=== PATIENT | female | born 1945 | race Caucasian/White ===

== ENCOUNTER → 2016-12-14 | Outpatient (CLI) | payer MEDICARE, OTHER ==
[~2016-12-14] MED LIST: ADVAIR 250-501 EAC1 INH; ADVAIR 250-501 EACH IH; ALBUTEROL0.83 MG/ML IH; AMOXICILLIN500 M1 PO; ASPIRINEC PO; AZULFIDINE PO; CHERATUSSIN AC118 ML PO; COMBIVENT U/D3 M2 INH; DELTASONE20 MG PO; DEXILANT30 MG PO; DEXILANT60 MG PO; DUONEB INH; EMBRIL; FOLIC ACID1 MG PO; FUROSEMIDE40 MG PO; HYDROCODON-ACE1 EAC5 PO; IPRATR-ALBUTEROL3 ML IH; LEVAQUIN750 M1 PO; LORTAB 101 TAB 10/5 PO; LORTAB 7.5-5001 TAB PO; LOSARTAN-HCTZ1 EACH PO; METHOTREXATE2.5 MG PO; OMEPRAZOLE20 M2 PO; OXYCODONE-APAP1 EACH PO; PREDNISONE PO; PREDNISONE5 M1 PO; PREDNISONE50 MG PO; PRILOSEC20 MG PO; PROAIR HFA8.5 GM; PROAIR HFA8.5 GM IH; PROAIR HFA8.5 GM INH; PROVENTIL INH0.5 ML HHN; SINGULAIR PO; VIT D PO; XELJANZ5 MG PO; XOPENEX45 MCG/15 INH; [UNRECOGNIZED DRUG - OTHER] PO
--- NOTE | ~2016-12-14 | US128 ---
[id number] [facility]. [facility] [address] [place], [place] [address] [id number] O MR#: [id number] Acc #: [id number] NAME: CHANELL WILSON : 1945 SEX: F STUDY DATE/TIME: 12/14/2016 13:28 UNIT: [facility] ROOM: STUDY DESCRIPTION: US Thyroid Attending Physician: Franklin Nunes M.D. Ordering Physician: Franklin Nunes M.D. MEDICAL IMAGING REPORT This report is preliminary unless electronic signature is present EXAM Thyroid ultrasound. DATE OF STUDY 12/14/2016 COMPARISON STUDIES None CLINICAL HISTORY Several month history of thyromegaly is identified from physical exam. FINDINGS The gland is relatively atrophic appearing. Vascularity is within normal limits. No nodule is seen on either side. IMPRESSION Somewhat atrophic. Otherwise unremarkable gland, no nodule on either side. Dictated by... Lex Garcia M.D. THIS IS AN ELECTRONICALLY VERIFIED REPORT Lex Garcia M.D. at 12/15/2016 4:01 PM DEVANTE/forrest TD: 12/14/2016 17:16 JOB #: [id number] MEDICAL IMAGING REPORT Page 1 of 1 COPY
--- NOTE | ~2016-12-14 | US116 ---
[facility] A Service of [facility] & [facility] RADIOLOGY TEXT RESULTS PATIENT: CHANELL WILSON LOCATION: [facility] : [birth year] UNIT #: [id number] AGE: [address]: Renny Nunes MD SEX: F ORDER DR: [id number] [facility] [address] [place], [place] [address] [id number] O MR#: [id number] Acc #: [id number] NAME: CHANELL WILSON : 1945 SEX: F STUDY DATE/TIME: 12/14/2016 13:39 UNIT: [facility] ROOM: STUDY DESCRIPTION: US Soft Tissue Head/Neck Attending Physician: Franklin Nunes M.D. Referring Physician: Franklin Nunes M.D. Ordering Physician: Franklin Nunes M.D. Primary Care Physician: Franklin Nunes M.D. MEDICAL IMAGING REPORT This report is preliminary unless electronic signature is present EXAM Soft tissue head and neck ultrasound. HISTORY Neck swelling and lymphadenopathy. FINDINGS The technologist has taken a few random images of portions of the neck, including some normal-sized lymph nodes. IMPRESSION No abnormality convincingly demonstrated, but if there is concern about head and neck soft tissue mass in an adult, recommend a contrast-enhanced soft tissue neck CT for further evaluation. Dictated by... Lex Garcia M.D. THIS IS AN ELECTRONICALLY VERIFIED REPORT Lex Garcia M.D. at 12/15/2016 4:01 PM TEV/silvia TD: 12/14/2016 17:35 JOB #: [id number] MEDICAL IMAGING REPORT Page 1 of 1 COPY
== END | disposition home or self-care (01) ==
LOC: CGUS 12:34
DX: R22.1 Localized swelling, mass and lump, neck (principal); R59.0 Localized enlarged lymph nodes; E03.4 Atrophy of thyroid (acquired)
CPT/HCPCS: 76536

== ENCOUNTER → 2017-01-09 | Outpatient (CLI) | payer MEDICARE, OTHER ==
--- NOTE | ~2017-01-09 | CR63 ---
[facility]. [facility] A Service of [facility] & [facility] RADIOLOGY TEXT RESULTS PATIENT: CHANELL WILSON LOCATION: [facility] : 49 UNIT #: [id number] AGE: [address]: Renny Nunes MD SEX: F ORDER DR: [id number] [place] [id number] O MR#: [id number] Acc #: [id number] NAME: CHANELL WILSON : 1945 SEX: F STUDY DATE/TIME: 01/09/2017 11:36 UNIT: [facility] ROOM: STUDY DESCRIPTION: CR Chest 2 View Attending Physician: Renny Nunes Referring Physician: Renny Nunes Ordering Physician: Franklin Nunes M.D. Primary Care Physician: Renny Nunes MEDICAL IMAGING REPORT This report is preliminary unless electronic signature is present. EXAM PA and lateral chest INDICATIONS Cough for 5 days COMPARISON 05/26/2016 FINDINGS Stable scarring in the right lung. No acute infiltrate. Heart size is normal. Degenerative change thoracic spine. IMPRESSION No active disease. Dictated by... Merrill Chi M.D. THIS IS AN ELECTRONICALLY VERIFIED REPORT Merrill Chi M.D. at 01/10/2017 10:02 AM ARS/to TD: 01/09/2017 17:11 JOB #: [id number] MEDICAL IMAGING REPORT Page 1 of 1
== END | disposition home or self-care (01) ==
LOC: SRAD 11:30
DX: R05 Cough (principal); Z79.899 Other long term (current) drug therapy
CPT/HCPCS: 71020

== ENCOUNTER → 2017-02-23 | Outpatient (CLI) | payer MEDICARE, OTHER ==
--- NOTE | ~2017-02-23 | CR58 ---
[facility] A Service of [facility] & [facility] RADIOLOGY TEXT RESULTS PATIENT: CHANELL WILSON LOCATION: [facility] : [birth year] UNIT #: [id number] AGE: [address]: Renny Nunes MD SEX: F ORDER DR: [id number] [facility] [address] [place], [place] [address] [id number] O MR#: [id number] Acc #: [id number] NAME: CHANELL WILSON : 1945 SEX: F STUDY DATE/TIME: 02/23/2017 12:42 UNIT: [facility] ROOM: STUDY DESCRIPTION: CR Cervical Spine 2 or 3 Views Attending Physician: Franklin Nunes M.D. Referring Physician: Franklin Nunes M.D. Ordering Physician: Franklin Nunes M.D. Primary Care Physician: Franklin Nunes M.D. MEDICAL IMAGING REPORT This report is preliminary unless electronic signature is present EXAM Cervical spine, 02/23 INDICATION Headache and dizziness and nausea that started 1 week ago after physical therapy. FINDINGS Four views of the cervical spine were obtained. There is multilevel facet arthropathy. No fracture or subluxation is seen. There is mild degenerative disc disease at C5-6. Prevertebral soft tissues are normal. Note is made of a mild yxu-ut-edleu thoracic compression deformity which appears old. There are apparent carotid arterial calcifications on the left side of the neck. These could be further evaluated with carotid duplex ultrasound if indicated. IMPRESSION 1. No fracture or malalignment. 2. Multilevel facet arthropathy with degenerative disc disease at C5-6. 3. Left-side carotid calcifications could indicate carotid stenosis. This could be further assessed with carotid duplex ultrasound if indicated. 4. Old mild zpu-hz-zdzoq thoracic compression fracture. Dictated by... Leoncio Layton Jr., M.D. THIS IS AN ELECTRONICALLY VERIFIED REPORT Leoncio Layton Jr., M.D. at 02/26/2017 7:20 AM BRENDA/forrest [facility] A Service of [facility] & [facility] RADIOLOGY TEXT RESULTS PATIENT: CHANELL WILSON LOCATION: [facility] : [birth year] UNIT #: [id number] AGE: [address]: Renny Nunes MD SEX: F ORDER DR: TD: 02/23/2017 17:00 JOB #: [id number] MEDICAL IMAGING REPORT Page 1 of 1 COPY
--- NOTE | ~2017-02-23 | CT71 ---
[facility] A Service of [facility] RADIOLOGY TEXT RESULTS PATIENT: CHANELL WILSON LOCATION: [facility] : [birth year] UNIT #: [id number] AGE: [address]: Renny Nunes MD SEX: F ORDER DR: [id number] [facility] [address] [place], [place] [address] [id number] O MR#: [id number] Acc #: [id number] NAME: CHANELL WILSON : 1945 SEX: F STUDY DATE/TIME: 02/23/2017 12:57 UNIT: [facility] ROOM: STUDY DESCRIPTION: CT Head Wo Contrast Attending Physician: Renny Nunes Referring Physician: Renny Nunes Ordering Physician: Franklin Nunes M.D. Primary Care Physician: Renny Nunes MEDICAL IMAGING REPORT This report is preliminary unless electronic signature is present EXAM CT of the head without contrast, 02/23/17 HISTORY Headache and neck pain since 02/17/17 TECHNIQUE Axial noncontrast images were obtained from the skull base to the vertex. This CT exam was performed with one or more of the following radiation dose reduction techniques: automatic exposure control, adjustment of mA and/or kV according to patient size, and iterative reconstruction. FINDINGS Ventricular size and configuration are normal. There is no evidence of acute infarct or hemorrhage. There are no extraaxial fluid collections. No mass lesion or mass effect is seen. There are no skull fractures. IMPRESSION Normal noncontrast head CT. Dictated by... Nima Aguilera M.D. THIS IS AN ELECTRONICALLY VERIFIED REPORT Nima Aguilera M.D. at 02/24/2017 6:06 AM FABIO/chito TD: 02/23/2017 22:49 JOB #: [id number] [facility] A Service of [facility] & [facility] RADIOLOGY TEXT RESULTS PATIENT: CHANELL WILSON LOCATION: [facility] : [birth year] UNIT #: [id number] AGE: [address]: Renny Nunes MD SEX: F ORDER DR: MEDICAL IMAGING REPORT Page 1 of 1 COPY
== END | disposition home or self-care (01) ==
LOC: CCAT 12:15
DX: R51 Headache (principal); M06.9 Rheumatoid arthritis, unspecified; M54.2 Cervicalgia; M50.322 Other cervical disc degeneration at C5-C6 level; M46.92 Unspecified inflammatory spondylopathy, cervical region; I65.22 Occlusion and stenosis of left carotid artery; Z87.81 Personal history of (healed) traumatic fracture
CPT/HCPCS: 70450; 72040

== ENCOUNTER → 2017-03-02 | Outpatient (CLI) | payer MEDICARE, OTHER ==
--- NOTE | ~2017-03-02 | US37 ---
[facility] A Service of [facility] RADIOLOGY TEXT RESULTS PATIENT: CHANELL WILSON LOCATION: [facility] : [birth year] UNIT #: [id number] AGE: [address]: Renny Nunes MD SEX: F ORDER DR: [id number] [facility] [address] [place], [place] [address] [id number] O MR#: [id number] Acc #: [id number] NAME: CHANELL WILSON : 1945 SEX: F STUDY DATE/TIME: 03/02/2017 13:40 UNIT: [facility] ROOM: STUDY DESCRIPTION: US Carotid W/Doppler Bilateral Attending Physician: Franklin Nunes M.D. Referring Physician: Franklin Nunes M.D. Ordering Physician: Franklin Nunes M.D. Primary Care Physician: Franklin Nunes M.D. MEDICAL IMAGING REPORT This report is preliminary unless electronic signature is present EXAM Carotid Doppler 03/02/2017 HISTORY Dizziness and headaches for 1 week. PROCEDURE Reyes-scale imaging, color-Doppler flow imaging and Doppler waveform analysis. FINDINGS There is reyes-scale evidence of atherosclerotic plaque throughout both carotid systems. There is antegrade flow in both common and internal and external carotid and vertebral arteries. Right internal carotid peak systolic velocity is 1.19 meters per second with a brisk systolic upstroke and minimal spectral broadening. Left internal carotid peak systolic velocity is 1.11 meters per second with a brisk systolic upstroke and minimal spectral broadening. IMPRESSION 1. Reyes-scale evidence of plaque in both carotid systems consistent with atherosclerosis but velocities and waveforms suggest less than 50% stenosis in both internal carotid arteries by NASCET criteria. 2. Antegrade flow seen in both external carotid and vertebral arteries as well. Dictated by... Lex Garcia M.D. THIS IS AN ELECTRONICALLY VERIFIED REPORT Lex Garcia M.D. at 03/03/2017 10:47 PM DEVANTE/jf [facility] A Service of [facility] & [facility] RADIOLOGY TEXT RESULTS PATIENT: CHANELL WILSON LOCATION: [facility] : [birth year] UNIT #: [id number] AGE: [address]: Renny Nunes MD SEX: F ORDER DR: TD: 03/02/2017 17:42 JOB #: [id number] MEDICAL IMAGING REPORT Page 1 of 1 COPY
== END | disposition home or self-care (01) ==
LOC: CNIV 13:00
DX: I65.22 Occlusion and stenosis of left carotid artery (principal); I65.23 Occlusion and stenosis of bilateral carotid arteries
CPT/HCPCS: 93880

== ENCOUNTER → 2017-05-01 | Outpatient (CLI) | payer MEDICARE, OTHER ==
[2017-05-01 11:14] LABS: CALCIUM SERUM 9.2 mg/dL (8.4-10.2); CREATININE SERUM 0.8 mg/dL (0.6-1.4); GLOM FILT RATE Estimated 74.8 mL/min (>60)
== END | disposition home or self-care (01) ==
LOC: CSSDAY 10:18
PROVIDERS: Internal Medicine Rheumatology
DX: M81.0 Age-related osteoporosis without current pathological fracture (principal)
CPT/HCPCS: 36415; 82310; 82565; 96365; J3489

== ENCOUNTER → 2017-06-01 | Outpatient (CLI) | payer MEDICARE, OTHER ==
--- NOTE | ~2017-06-01 | MY29 ---
[facility] A Service [facility] RADIOLOGY TEXT RESULTS PATIENT: CHANELL WILSON LOCATION: [facility] : 47 UNIT #: [id number] AGE: [address]: Renny Nunes MD SEX: F ORDER DR: [id number] [facility] [address] [place], [place] [address] [id number] O MR#: [id number] Acc #: [id number] NAME: CHANELL WILSON : 1945 SEX: F STUDY DATE/TIME: 06/01/2017 13:48 UNIT: [facility] ROOM: STUDY DESCRIPTION: MY REANNA SCREENING W/ CAD BILAT Attending Physician: Franklin Nunes M.D. Ordering Physician: Franklin Nunes M.D. Primary Care Physician: Franklin Nunes M.D. MEDICAL IMAGING REPORT This report is preliminary unless electronic signature is present EXAM Digital screening mammogram, 06/01/2017; [facility]. HISTORY 72-year-old woman, positive family history, mother postmenopausal. Two prior right breast biopsies. Annual screen. COMPARISON Mammograms 02/25/2013, 06/04/2014, 08/06/2015, 05/30/2016. FINDINGS Digital imaging of each breast was completed utilizing standard craniocaudal and mediolateral-oblique projections. Review and interpretation of digital mammograms include a second review in conjunction with FDA-approved CAD device. There is an overall increase in the parenchymal presentation bilaterally with a generalized fibronodular pattern in each breast. There are no breast masses and I see no asymmetry in the parenchymal presentation. There are no suspicious microcalcifications and I see no architectural disturbance. IMPRESSION Benign mammogram. One-year followup recommended. Patients over the age of 40 are entered into a reminder system with target due date for the next mammogram. A result letter will also be sent to the patient. BIRADS: 2 Benign Finding. Dictated by... Major Galvez M.D. [facility] A Service [facility] RADIOLOGY TEXT RESULTS PATIENT: CHANELL WILSON LOCATION: [facility] : 47 UNIT #: [id number] AGE: [address]: Renny Nunes MD SEX: F ORDER DR: THIS IS AN ELECTRONICALLY VERIFIED REPORT Major Galvez M.D. at 06/03/2017 12:02 PM Hardik TD: 06/01/2017 19:57 JOB #: [id number] MEDICAL IMAGING REPORT Page 1 of 1 COPY
== END | disposition home or self-care (01) ==
LOC: CWCC 13:30
DX: Z12.31 Encounter for screening mammogram for malignant neoplasm of breast (principal); Z80.3 Family history of malignant neoplasm of breast; Z98.890 Other specified postprocedural states
CPT/HCPCS: G0202

== ENCOUNTER → 2017-06-08 | Outpatient (CLI) | payer MEDICARE, OTHER ==
--- NOTE | ~2017-06-08 | CR126 ---
[facility] A Service of [facility] RADIOLOGY TEXT RESULTS PATIENT: CHANELL WILSON [id number] [birth year] UNIT #: [id number] AGE: [address]: CHARLIE BONNER MD SEX: F ORDER DR: [id number] [facility] [address] [place], [place] [address] [id number] O MR#: [id number] Acc #: [id number] NAME: CHANELL WILSON : 1945 SEX: F STUDY DATE/TIME: 06/08/2017 11:34 UNIT: [facility] ROOM: STUDY DESCRIPTION: CR Foot Complete Min 3 View Lt Attending Physician: Charlie Bonner M.D. Ordering Physician: Charlie Bonner M.D. MEDICAL IMAGING REPORT This report is preliminary unless electronic signature is present EXAMINATION Three views left foot. DATE 06/08/2017 HISTORY Left foot pain for 1 month. No known injury. History of rheumatoid arthritis, high-risk medications. Undergoing evaluation for inflammatory arthritis. COMPARISON None. FINDINGS No fracture. No dislocation. Mild degenerative narrowing in the first MTP joint with small bunion formation along the distal medial surface of the first metatarsal. There is prominent spurring at the dorsum of the midfoot. Prominent posterior calcaneal spurs are present, greatest at the plantar surface. No marginal erosions or periostitis changes. IMPRESSION Kqkj-sk-coebtqer osteoarthritic changes in the left foot as described. No acute findings. Dictated by... Lyndsey Ramos M.D. THIS IS AN ELECTRONICALLY VERIFIED REPORT Lyndsey Ramos M.D. at 06/11/2017 8:50 AM SONYA/aj TD: 06/09/2017 01:30 [facility] A Service of [facility] & [facility] RADIOLOGY TEXT RESULTS PATIENT: CHANELL WILSON [facility] [id number] : [birth year] UNIT #: [id number] AGE: [address]: CHARLIE BONNER MD SEX: F ORDER DR: JOB #: [id number] MEDICAL IMAGING REPORT Page 1 of 1 COPY
--- NOTE | ~2017-06-08 | CR282 ---
[facility] A Service of [facility] RADIOLOGY TEXT RESULTS PATIENT: CHANELL WILSON [facility] [id number] : [birth year] UNIT #: [id number] AGE: [address]: CHARLIE BONNER MD SEX: F ORDER DR: [id number] [facility] [address] [place], [place] [address] [id number] O MR#: [id number] Acc #: [id number] NAME: CHANELL WILSON : 1945 SEX: F STUDY DATE/TIME: 06/08/2017 11:27 UNIT: [facility] ROOM: STUDY DESCRIPTION: CR Wrist Min 3 View Rt Attending Physician: Charlie Bonner M.D. Ordering Physician: Charlie Bonner M.D. MEDICAL IMAGING REPORT This report is preliminary unless electronic signature is present EXAMINATION Three views, right wrist. DATE 06/08/2017 HISTORY Rheumatoid arthritis of multiple sites with negative rheumatoid factor. Long-term use of high-risk medication. Evaluate for inflammatory arthritis. COMPARISON Right hand radiographs, 06/08/2017. There are no more remote wrist radiographs for comparison at this institution. FINDINGS No fracture. No dislocation. Advanced radiocarpal, intercarpal and carpometacarpal joint space narrowing with articular sclerosis. Small subchondral cystic changes are demonstrated throughout multiple carpal bones. Marginal osteophyte formation is demonstrated throughout the wrist. Osteopenia. No fracture or dislocation. Questionable marginal erosive changes along the proximal and ulnar aspect of the fifth metacarpal, raising the possibility of erosive osteoarthritis. IMPRESSION 1. Questionable subtle erosion along the proximal and ulnar margin of the fifth metacarpal bone raising the possibility of erosive type osteoarthritis. 2. Advanced degenerative changes right wrist as described in keeping with patient's stated history of rheumatoid arthritis. 3. No acute fracture or dislocation. 4. Osteopenia. [facility] A Service of [facility] & [facility] RADIOLOGY TEXT RESULTS PATIENT: CHANELL WILSON [facility] [id number] : [birth year] UNIT #: [id number] AGE: [address]: CHARLIE BONNER MD SEX: F ORDER DR: Dictated by... Lyndsey Ramos M.D. THIS IS AN ELECTRONICALLY VERIFIED REPORT Lyndsey Ramos M.D. at 06/11/2017 8:50 AM SONYA/aj TD: 06/09/2017 01:07 JOB #: [id number] MEDICAL IMAGING REPORT Page 1 of 1 COPY
--- NOTE | ~2017-06-08 | CR127 ---
[facility] A Service of [facility] RADIOLOGY TEXT RESULTS PATIENT: CHANELL WILSON LOCATION: [facility] #: [id number] : 49 UNIT #: [id number] AGE: [address]: GARY BONNER MD SEX: F ORDER DR: [id number] [facility] [address] [place], [place] [address] [id number] O MR#: [id number] Acc #: [id number] NAME: CHANELL WILSON : 1945 SEX: F STUDY DATE/TIME: 06/08/2017 11:32 UNIT: [facility] ROOM: STUDY DESCRIPTION: CR Foot Complete Min 3 View Rt Attending Physician: Gary Bonner M.D. Ordering Physician: Gary Bonner M.D. MEDICAL IMAGING REPORT This report is preliminary unless electronic signature is present EXAMINATION Three views of the right foot. DATE 06/08/2017 HISTORY Bilateral foot pain for 1 month. History of rheumatoid arthritis. Starting new medications. FINDINGS No fracture or joint dislocation. Chronic-appearing calcification at the base of fifth metatarsal may represent sequelae of old nonunited fracture. Prominent plantar calcaneal spur is present. There is mild degenerative change of the first MTP joint with hallux valgus formation, mild bunion formation of the distal medial and metatarsal bone. There is mild spurring at the dorsum of the midfoot at the tarsal - navicular junction. IMPRESSION 1. Mild osteoarthritic type changes of the right foot as described with mild osteopenia. 2. 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 3. No acute findings. Dictated by... Lyndsey Ramos M.D. THIS IS AN ELECTRONICALLY VERIFIED REPORT Lyndsey Ramos M.D. at 06/11/2017 8:50 AM LLH/jt [facility] A Service of [facility] & [facility] RADIOLOGY TEXT RESULTS PATIENT: CHANELL WILSON LOCATION: [facility] #: [id number] : [birth year] UNIT #: [id number] AGE: [address]: GARY BONNER MD SEX: F ORDER DR: TD: 06/09/2017 01:20 JOB #: [id number] MEDICAL IMAGING REPORT Page 1 of 1 COPY
--- NOTE | ~2017-06-08 | CR281 ---
[facility] A Service of [facility] RADIOLOGY TEXT RESULTS PATIENT: CHANELL WILSON LOCATION: [facility] : 49 UNIT #: [id number] AGE: [address]: CHARLIE BONNER MD SEX: F ORDER DR: [id number] [facility] [address] [place], [place] [address] [id number] O MR#: [id number] Acc #: [id number] NAME: CHANELL WILSON : 1945 SEX: F STUDY DATE/TIME: 06/08/2017 11:21 UNIT: [facility] ROOM: STUDY DESCRIPTION: CR Wrist Min 3 View Lt Attending Physician: Charlie Bonner M.D. Ordering Physician: Charlie Bonner M.D. MEDICAL IMAGING REPORT This report is preliminary unless electronic signature is present EXAMINATION Three-views, left wrist. DATE 06/08/2017 HISTORY 72-year-old female with rheumatoid arthritis at multiple sites with negative rheumatoid factor. Long-term use of high-risk medication. Evaluate for inflammatory osteoarthritis. COMPARISON Left hand radiographs, 06/08/2017. Previous left wrist radiograph from 2009, cannot be retrieved from archives due to computer malfunction. FINDINGS Old orthopedic plate and screw fixation changes of the distal left radial metaphysis. Hardware appears intact. Marked narrowing of the radiocarpal joint space, marked narrowing of the intercarpal and carpal metacarpal joint spaces. Articular sclerosis is demonstrated within the wrist and radiocarpal joint, and there is marginal osteophyte formation which predominates along the radial margin. No periostitis changes. Mild subchondral cystic changes within multiple carpal bones. No fracture or dislocation. Osteopenia. IMPRESSION 1. Severe degenerative changes of the left wrist in keeping with a stated history of rheumatoid arthritis, without evidence of active erosive or inflammatory process at this time. 2. Old ORIF changes of the distal left radial metaphysis. 3. Osteopenia. 4. No acute findings. [facility] A Service of [facility] RADIOLOGY TEXT RESULTS PATIENT: CHANELL WILSON [id number] 49 UNIT #: [id number] AGE: [address]: CHARLIE BONNER MD SEX: F ORDER DR: Dictated by... Lyndsey Ramos M.D. THIS IS AN ELECTRONICALLY VERIFIED REPORT Lyndsey Ramos M.D. at 06/11/2017 8:50 AM SONYA/aj TD: 06/09/2017 00:57 JOB #: [id number] MEDICAL IMAGING REPORT Page 1 of 1 COPY
--- NOTE | ~2017-06-08 | CR142 ---
[facility] A Service of [facility] & [facility] RADIOLOGY TEXT RESULTS PATIENT: CHANELL WILSON LOCATION: [facility] : 49 UNIT #: [id number] AGE: [address]: CHARLIE BONNER MD SEX: F ORDER DR: [id number] [facility] [place] [address]. [place], [place] [address] [id number] O MR#: [id number] Acc #: [id number] NAME: CHANELL WILSON : 1945 SEX: F STUDY DATE/TIME: 06/08/2017 11:23 UNIT: [facility] ROOM: STUDY DESCRIPTION: CR Hand Min 3 Views Rt Attending Physician: Charlie Bonner M.D. Ordering Physician: Charlie Bonner M.D. MEDICAL IMAGING REPORT This report is preliminary unless electronic signature is present EXAMINATION Three views of the right hand. DATE 06/08/2017 HISTORY 72-year-old female with rheumatoid arthritis at multiple sites with negative rheumatoid factor. Long-term use of high-risk medication. Evaluate for inflammatory arthritis. Symptoms began 1 month ago. COMPARISON None. FINDINGS No acute fracture or dislocation. Severe narrowing of the radiocarpal joint and intercarpal joint and carpal metacarpal joints with articular sclerosis. Mild marginal osteophyte formation is demonstrated throughout the radial and ulnar surface of the wrist. Subchondral cystic changes seen at the base of the fifth metacarpal at its ulnar surface. No periostitis changes seen. Questionable marginal erosion at the base of fifth metacarpal, as well. More moderate osteoarthritic type changes are seen within the metacarpal phalangeal joints and proximal distal interphalangeal joints, greatest in the second through fourth DIP joints in the third PIP joint. Moderate degenerative changes in the first carpometacarpal joint. IMPRESSION 1. Moderate to severe degenerative changes of the right hand and wrist as described above, greatest within the wrist. Findings are in keeping with the patient's stated history of rheumatoid arthritis. There is questionable marginal erosion involving the base of the fifth metacarpal at its ulnar surface, which may include a component [facility] A Service of [facility] & [facility] RADIOLOGY TEXT RESULTS PATIENT: CHANELL WILSON [id number] : [birth year] UNIT #: [id number] AGE: [address]: CHARLIE BONNER MD SEX: F ORDER DR: of inflammatory or erosive osteoarthritis. 2. No acute right hand or wrist findings. 3. Osteopenia. Dictated by... Lyndsey Ramos M.D. THIS IS AN ELECTRONICALLY VERIFIED REPORT Lyndsey Ramos M.D. at 06/11/2017 8:50 AM SONYA/aj TD: 06/09/2017 01:02 JOB #: [id number] MEDICAL IMAGING REPORT Page 1 of 1 COPY
--- NOTE | ~2017-06-08 | CR141 ---
[facility] A Service of [facility] RADIOLOGY TEXT RESULTS PATIENT: CHANELL WILSON LOCATION: [facility] : 49 UNIT #: [id number] AGE: [address]: CHARLIE BONNER MD SEX: F ORDER DR: [id number] [facility] [address] [facility] [place], [place] [address] [id number] O MR#: [id number] Acc #: [id number] NAME: CHANELL WILSON : 1945 SEX: F STUDY DATE/TIME: 06/08/2017 11:19 UNIT: [facility] ROOM: STUDY DESCRIPTION: CR Hand Min 3 Views Lt Attending Physician: Charlie Bonner M.D. Ordering Physician: Charlie Bonner M.D. MEDICAL IMAGING REPORT This report is preliminary unless electronic signature is present EXAM 3 views left hand. 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 Long-term use of high-risk medication. Evaluate for inflammatory arthritis. Bilateral wrist pain for 1 month. COMPARISON The patient's previous left wrist radiographs of 01/25/2010 cannot be retrieved from archives due to computer malfunction. FINDINGS Old plate and screw fixation changes of the distal left radial metaphysis. Hardware appears intact. Marked loss of normal radiocarpal joint space and intercarpal and carpometacarpal joint spaces with articular sclerosis. Marginal osteophyte formation predominates along the radial surface of the wrist. Subchondral cystic changes are seen within multiple carpal bones. There is advanced degenerative change of the first carpometacarpal joint. There is moderate narrowing and marginal osteophyte formation and articular sclerosis of the proximal and distal interphalangeal joints, most notably in the second and third DIP joints. Osteopenia is noted. No fracture dislocation. [facility] A Service of [facility] RADIOLOGY TEXT RESULTS PATIENT: CHANELL WILSON [id number] 49 UNIT #: [id number] AGE: [address]: CHARLIE BONNER MD SEX: F ORDER DR: IMPRESSION Advanced degenerative changes of the left hand and wrist, in keeping with the patient's stated history of rheumatoid arthritis. No marginal erosive changes are periostitis is seen to suggest an active areas of osteoarthritic pattern at this time. Dictated by... Lyndsey Ramos M.D. THIS IS AN ELECTRONICALLY VERIFIED REPORT Lyndsey Ramos M.D. at 06/11/2017 8:50 AM SONYA/jameel TD: 06/09/2017 00:41 JOB #: [id number] MEDICAL IMAGING REPORT Page 1 of 1 COPY
== END | disposition home or self-care (01) ==
LOC: CRAD 10:49
DX: M06.9 Rheumatoid arthritis, unspecified (principal); R20.0 Anesthesia of skin; M19.042 Primary osteoarthritis, left hand; M19.032 Primary osteoarthritis, left wrist; M85.842 Other specified disorders of bone density and structure, left hand; M19.071 Primary osteoarthritis, right ankle and foot; Z98.890 Other specified postprocedural states; Z79.899 Other long term (current) drug therapy
CPT/HCPCS: 73110; 73130; 73630